=== PATIENT | male | born 1960 | race Two or more races ===

== ENCOUNTER 2020-07-22 08:09 | Day surgery (SDC) | payer OTHER | END 2020-07-22 16:30 | disposition home or self-care (01) | LOC: AMB-ENDOS 08:09 | PROVIDERS: ATTEND Surgery | DX: K62.89 Other specified diseases of anus and rectum (principal); Z20.822 Contact with and (suspected) exposure to COVID-19; Z12.11 Encounter for screening for malignant neoplasm of colon ==

== ENCOUNTER 2020-09-29 06:11 | Day surgery (SDC) | payer OTHER ==
[~2020-09-29 06:11] MED LIST: ZESTRIL5 MG PO
[2020-09-29] MEDS ORDERED: PERCOCET 5-3251 EACH PO (12:05)
[2020-09-29] MEDS ORDERED: NEURONTIN300 MG PO (12:06)
== END 2020-09-29 13:30 | disposition home or self-care (01) ==
LOC: CIR.AMB 06:11
PROVIDERS: ATTEND Surgery
DX: K60.3 Anal fistula (principal); Z20.822 Contact with and (suspected) exposure to COVID-19

== ENCOUNTER 2021-09-21 05:45 | Day surgery (SDC) | payer OTHER ==
[~2021-09-21 05:45] MED LIST changes: +NEURONTIN300 MG PO; +OMEGA PO; +PERCOCET 5-3251 EACH PO
[2021-09-21] MEDS ORDERED: PERCOCET 5-3251 EACH PO (08:16)
[2021-09-21] MEDS ORDERED: KETO10TA2 PO (08:16)
[2021-09-21] MEDS ORDERED: DERMOPLAST PAIN78 GM TOP (08:17)
[2021-09-21] MEDS ORDERED: NEURONTIN300 MG PO (08:17)
== END 2021-09-21 14:00 | disposition home or self-care (01) ==
LOC: CIR.AMB 05:45
PROVIDERS: ATTEND Surgery
DX: K60.3 Anal fistula (principal); K57.30 Diverticulosis of large intestine without perforation or abscess without bleeding; Z20.822 Contact with and (suspected) exposure to COVID-19; I10 Essential (primary) hypertension; E78.5 Hyperlipidemia, unspecified; Z87.891 Personal history of nicotine dependence; F14.21 Cocaine dependence, in remission; F10.21 Alcohol dependence, in remission; E66.9 Obesity, unspecified

== ENCOUNTER 2022-02-01 06:18 | Day surgery (SDC) | payer OTHER ==
[~2022-02-01] VITALS: Ht 167.6 cm; Wt 90.7 kg
[~2022-02-01 06:18] MED LIST changes: +DERMOPLAST PAIN78 GM TOP; +KETO10TA2 PO
[2022-02-01] MEDS ORDERED: NEURONTIN300 MG PO (12:34)
[2022-02-01] MEDS ORDERED: PERCOCET 5-3251 EACH PO (12:34)
[2022-02-01] MEDS ORDERED: KETO10TA2 PO (12:35)
[2022-02-01] MEDS ORDERED: DERMOPLAST PAIN78 GM TOP (12:35)
== END 2022-02-01 17:00 | disposition home or self-care (01) ==
LOC: CIR.AMB 06:18
PROVIDERS: ATTEND Surgery
DX: K60.3 Anal fistula (principal); Z20.822 Contact with and (suspected) exposure to COVID-19; K57.30 Diverticulosis of large intestine without perforation or abscess without bleeding